=== PATIENT | female | born 1990 | race African-American/Black ===

== ENCOUNTER 2018-11-16 23:23 | Emergency (ER) | payer MEDICAID, OTHER ==
[~2018-11-16] VITALS: Ht 170.2 cm; Wt 87.0 kg
[2018-11-16] MEDS ORDERED: IPRATROPIUM BROMIDE (0.02%) 0.5MG/2.5ML NEB HHN STA (23:47)
[2018-11-16] MEDS ORDERED: ALBUTEROL (0.083%) 2.5MG/3ML NEB HHN STA (23:47)
[2018-11-16] MEDS ORDERED: METHYLPREDNISOLONE SOD SUCC 125 MG/2 ML VIAL IV STA (23:47)
[2018-11-17] MEDS ORDERED: MAGNESIUM 2 G PREMIX 50 ML IV ONE
[2018-11-17] MEDS ORDERED: PREDNISONE 20MG TABLET PO ONE (00:30)
[2018-11-17] MEDS ORDERED: LORAZEPAM 1MG TABLET PO ONE (00:45)
[2018-11-17 01:19] LABS: HCG SCREEN NEGATIVE
[2018-11-17 01:30] VITALS: BP 114/74
== END 2018-11-17 03:17 | disposition home or self-care (01) ==
LOC: ER 23:36
DX: J45.901 Unspecified asthma with (acute) exacerbation (principal)
CPT/HCPCS: 84703; 94640; 96365; 99283; J2930; J3475; J7512; J7611; Z7610

== ENCOUNTER 2018-12-02 09:01 | Emergency (ER) | payer MEDICAID ==
[~2018-12-02] VITALS: Ht 157.5 cm; Wt 84.0 kg
[2018-12-02] MEDS ORDERED: ACETAMINOPHEN 325MG TABLET PO ONE (10:00)
[2018-12-02 10:39] LABS: CLARITY URINE CLEAR (CLEAR); COLOR URINE YELLOW (YELLOW); KETONES URINE NEGATIVE (NEGATIVE); LEUKOCYTE ESTERASE URINE TRACE (NEGATIVE); NITRITE URINE NEGATIVE (NEGATIVE); OCCULT BLOOD URINE NEGATIVE (NEGATIVE); PH URINE >=9.0 (4.5-8.0); PROTEIN URINE NEGATIVE (NEGATIVE)
[2018-12-02 11:08] LABS: BASOPHILS % 0.6 % (0.0-2.0); EOSINOPHILS % 2.4 % (0.0-5.0); HEMATOCRIT. 33.6 % (36.0-48.0); HEMOGLOBIN. 10.8 g/dL (12.0-16.0); LYMPHOCYTES % 43.3 % (20.0-50.0); MEAN CORPUSCULAR HEMOGLOBIN 23.6 pg (28.0-32.0); MEAN CORPUSCULAR VOLUME 73.5 fL (81.0-99.0); MEAN PLATELET VOLUME 7.4 fl (7.4-10.4); MONOCYTES % 5.1 % (2.0-8.0); NEUTROPHILS % 48.6 % (40.0-76.0); PLATELET 318 x1000/uL (130-400); RED BLOOD CELL COUNT 4.57 mill/uL (4.2-5.4); RED CELL DISTRIBUTION WIDTH 14.5 % (11.6-14.6)
[2018-12-02 11:16] LABS: CHLORIDE 103 mEq/L (98-107)
[2018-12-02 11:40] LABS: B-HCG QUANTITATIVE 13084 mIU/mL (<3)
[2018-12-02 12:10] VITALS: BP 107/58
== END 2018-12-02 12:10 | disposition home or self-care (01) ==
LOC: ER 09:01
DX: O20.0 Threatened abortion (principal); O26.891 Other specified pregnancy related conditions, first trimester; Z3A.01 Less than 8 weeks gestation of pregnancy; J45.909 Unspecified asthma, uncomplicated; Z88.6 Allergy status to analgesic agent; Z88.8 Allergy status to other drugs, medicaments and biological substances; Z91.013 Allergy to seafood
CPT/HCPCS: 36415; 76801; 81003; 81025; 84702; 86850; 86900; 99284

== ENCOUNTER 2019-02-03 07:15 | Emergency (ER) | payer MEDICAID ==
[~2019-02-03] VITALS: Ht 170.2 cm; Wt 70.0 kg
[2019-02-03] MEDS ORDERED: PREDNISONE 20MG TABLET PO STA (07:29)
[2019-02-03] MEDS ORDERED: IPRATROPIUM BROMIDE (0.02%) 0.5MG/2.5ML NEB HHN STA (07:29)
[2019-02-03] MEDS ORDERED: ALBUTEROL (0.083%) 2.5MG/3ML NEB HHN STA (07:29)
[2019-02-03 10:38] VITALS: BP 105/64
== END 2019-02-03 10:30 | disposition home or self-care (01) ==
LOC: ER 07:15
DX: O26.892 Other specified pregnancy related conditions, second trimester (principal); Z3A.15 15 weeks gestation of pregnancy; J45.901 Unspecified asthma with (acute) exacerbation; Z88.6 Allergy status to analgesic agent; Z88.8 Allergy status to other drugs, medicaments and biological substances; Z91.013 Allergy to seafood
CPT/HCPCS: 99285; J7512; J7611; Z7610

== ENCOUNTER 2019-08-01 04:06 | Inpatient (IN) | payer MEDICAID ==
[~2019-08-01] VITALS: Ht 154.9 cm; Wt 103.4 kg
[2019-08-01] MEDS ORDERED: DEXT 5%/LR + PITOCIN 20UNITS/L 1,000 ML IV SCH (05:38)
[2019-08-01] MEDS ORDERED: LIDOCAINE HCL 1% 20ML VIAL (Pyxis) INJ INFIL SCH (05:45)
[2019-08-01] MEDS ORDERED: PENICILLIN G POTASSIUM 5 MMU in DEXT 5% WATER 100 ML IV NR (06:00)
[2019-08-01] MEDS: LACTATED RINGERS 1,000 ML IV SCH ×3 (06:30→18:41)
[2019-08-01 07:23] LABS: BASOPHILS % 0.4 % (0.0-2.0); EOSINOPHILS % 1.5 % (0.0-5.0); HEMATOCRIT. 27.7 % (36.0-48.0); LYMPHOCYTES % 34.8 % (20.0-50.0); MEAN CORPUSCULAR HEMOGLOBIN 23.4 pg (28.0-32.0); MEAN CORPUSCULAR VOLUME 71.9 fL (81.0-99.0); MEAN PLATELET VOLUME 8.6 fl (7.4-10.4); MONOCYTES % 5.4 % (2.0-8.0); NEUTROPHILS % 57.9 % (40.0-76.0); PLATELET 262 x1000/uL (130-400); RED BLOOD CELL COUNT 3.85 mill/uL (4.2-5.4); RED CELL DISTRIBUTION WIDTH 16.1 % (11.6-14.6)
[2019-08-01 07:26] LABS: CLARITY URINE CLOUDY (CLEAR); COLOR URINE YELLOW (YELLOW); KETONES URINE NEGATIVE (NEGATIVE); LEUKOCYTE ESTERASE URINE NEGATIVE (NEGATIVE); NITRITE URINE NEGATIVE (NEGATIVE); OCCULT BLOOD URINE NEGATIVE (NEGATIVE); PH URINE 6.5 (4.5-8.0); PROTEIN URINE 1+ (NEGATIVE); SPECIFIC GRAVITY URINE 1.009 (1.005-1.030); UROBILINOGEN URINE 0.2 E.U./dL (0.2-1.0)
[2019-08-01 07:33] LABS: INR 0.9; PARTIAL THROMBOPLASTIN TIME 26.6 sec (23.4-31.0); PROTHROMBIN TIME 9.8 sec (9.6-11.0)
[2019-08-01 07:43] LABS: *AMPHETAMINES SCREEN URINE NEGATIVE (NEGATIVE); *BARBITURATES SCREEN URINE NEGATIVE (NEGATIVE); *BENZODIAZEPINES SCREEN URINE NEGATIVE (NEGATIVE); *COCAINE SCREEN URINE NEGATIVE (NEGATIVE)
[2019-08-01 07:44] LABS: CANNABINOID URINE SCREEN NEGATIVE (NEGATIVE); METHADONE URINE SCREEN NEGATIVE (NEGATIVE); OPIATES URINE SCREEN NEGATIVE (NEGATIVE); PHENCYCLIDINE URINE SCREEN NEGATIVE (NEGATIVE)
[2019-08-01 11:51] LABS: HEPATITIS B SURFACE ANTIGEN NEGATIVE
[2019-08-01] MEDS: PENICILLIN G POTASSIUM 2.5 MMU in DEXTROSE 5% WATER 50 ML IV SCH ×3 (15:13→23:04)
[2019-08-01] MEDS: BUTORPHANOL TARTRATE 2 MG/ML VIAL IV PRN ×3 (17:13→23:29)
[2019-08-02] MEDS: AZITHROMYCIN 500 MG in DEXT 5% WATER 250 ML IV SCH ×2 (00:12→11:47)
[2019-08-02] MEDS ORDERED: BUTORPHANOL TARTRATE 2 MG/ML VIAL IV PRN ×2 (02:00→12:00)
[2019-08-02] MEDS: PENICILLIN G POTASSIUM 2.5 MMU in DEXTROSE 5% WATER 50 ML IV SCH ×3 (03:03→11:47)
[2019-08-02] MEDS ORDERED: ROPIVACAINE HCL/PF EPIDURAL 200 ML EPI SCH (04:00)
[2019-08-02] MEDS: LACTATED RINGERS 1,000 ML IV SCH (04:39)
[2019-08-02] MEDS ORDERED: FENTANYL CITRATE/PF 50MCG/ML 2ML VIAL ONE ×3 (10:04→17:04)
[2019-08-02] MEDS ORDERED: CEFAZOLIN SODIUM 1000MG/VIAL ONE (10:12)
[2019-08-02] MEDS ORDERED: OXYTOCIN 10 UNITS/ML 1ML ONE (10:12)
[2019-08-02] MEDS ORDERED: ONDANSETRON HCL 4MG/2ML INJ ONE (10:12)
[2019-08-02] MEDS ORDERED: CITRIC ACID/SODIUM CITRATE SOLN 30ML UDC PO ONE (10:30)
[2019-08-02] MEDS ORDERED: LIDOCAINE HCL 1% 20ML VIAL (Pyxis) INJ INFIL ONE (12:00)
[2019-08-02] MEDS ORDERED: LACTATED RINGERS 1,000 ML IV SCH (12:00)
[2019-08-02] MEDS ORDERED: LIDOCAINE HCL 2%/EPINEPHRINE 1:100,000 20 ML VIAL INFIL ONE (12:54)
[2019-08-02] MEDS ORDERED: ROPIVACAINE HCL/PF EPIDURAL 200 ML EPI ONE (15:04)
[2019-08-02] MEDS ORDERED: PENICILLIN G POTASSIUM 2.5 MMU in DEXTROSE 5% WATER 50 ML IV SCH (16:00)
[2019-08-02] MEDS ORDERED: MIDAZOLAM HCL 2 MG/2 ML VIAL ONE (17:03)
[2019-08-02] MEDS ORDERED: FENTANYL CITRATE/PF 50MCG/ML 2ML VIAL IV PRN (17:04)
[2019-08-02] MEDS ORDERED: CITRIC ACID/SODIUM CITRATE SOLN 15ML UDC PO NR (18:00)
[2019-08-02] MEDS: FENTANYL CITRATE/PF 50MCG/ML 2ML VIAL IV PRN ×3 (18:35→19:49)
[2019-08-02 20:00] VITALS: BP 117/73
[2019-08-02 21:30] VITALS: BP 115/74
[2019-08-02] MEDS ORDERED: DEXT 5%/LR + PITOCIN 20UNITS/L 1,000 ML IV SCH (21:58)
[2019-08-02] MEDS ORDERED: DEXT 5%/LACTATED RINGERS 1,000 ML IV SCH (21:58)
[2019-08-02] MEDS ORDERED: LANOLIN OINT 7GM TUBE TOP PRN (22:00)
[2019-08-02] MEDS ORDERED: ONDANSETRON HCL 4MG/2ML INJ IV PRN (22:00)
[2019-08-02] MEDS ORDERED: IBUPROFEN 400MG TABLET PO PRN (22:00)
[2019-08-02] MEDS ORDERED: HEMORRHOIDAL SUPP PR PRN (22:00)
[2019-08-02] MEDS ORDERED: BISACODYL 10MG SUPP PR PRN (22:00)
[2019-08-02] MEDS ORDERED: RHO(D) IMMUNE GLOBULIN 300 MCG/SYR IM PRN (22:00)
[2019-08-02] MEDS ORDERED: DIPHENHYDRAMINE 25MG CAPSULE PO PRN (22:00)
[2019-08-02] MEDS: KETOROLAC 30MG/ML VIAL IV PRN (23:34)
[2019-08-02 23:50] VITALS: BP 119/71
[2019-08-03] MEDS ORDERED: AZITHROMYCIN 500 MG in DEXT 5% WATER 250 ML IV SCH ×4
[2019-08-03] MEDS: KETOROLAC 30MG/ML VIAL IV PRN (04:56)
[2019-08-03 05:30] VITALS: BP 114/82
[2019-08-03 06:17] LABS: BASOPHILS % 0.3 % (0.0-2.0); EOSINOPHILS % 0.7 % (0.0-5.0); HEMATOCRIT. 25.4 % (36.0-48.0); LYMPHOCYTES % 16.9 % (20.0-50.0); MEAN CORPUSCULAR HEMOGLOBIN 22.7 pg (28.0-32.0); MEAN PLATELET VOLUME 9.1 fl (7.4-10.4); MONOCYTES % 4.7 % (2.0-8.0); NEUTROPHILS % 77.4 % (40.0-76.0); PLATELET 220 x1000/uL (130-400); RED BLOOD CELL COUNT 3.53 mill/uL (4.2-5.4); RED CELL DISTRIBUTION WIDTH 16.3 % (11.6-14.6)
[2019-08-03] MEDS: SIMETHICONE 80MG TABLET CHEW PO SCH ×3 (09:04→20:59)
[2019-08-03] MEDS: PRENATAL VIT/FE FUMARATE/FA TABLET PO SCH (09:05)
[2019-08-03] MEDS: IBUPROFEN 800MG TABLET PO PRN ×2 (09:05→16:04)
[2019-08-03] MEDS: FERROUS SULFATE 325MG TABLET PO SCH ×2 (09:05→16:04)
[2019-08-03 18:13] VITALS: BP 107/53
[2019-08-03] MEDS: HYDROCODONE/ACETAMINOPHEN 5/325MG TABLET PO PRN (19:07)
[2019-08-03] MEDS: MAGNESIUM/ALUMINUM HYDROXIDE/SIMETHICONE 30ML UDC PO SCH (20:58)
[2019-08-03] MEDS: DOCUSATE SODIUM 100MG CAPSULE PO SCH (20:59)
[2019-08-03 21:51] VITALS: BP 106/63
[2019-08-04] MEDS: HYDROCODONE/ACETAMINOPHEN 5/325MG TABLET PO PRN ×4 (05:06→21:02)
[2019-08-04] MEDS: SIMETHICONE 80MG TABLET CHEW PO SCH ×4 (08:00→21:10)
[2019-08-04] MEDS: MAGNESIUM/ALUMINUM HYDROXIDE/SIMETHICONE 30ML UDC PO SCH ×3 (09:11→21:10)
[2019-08-04] MEDS: PRENATAL VIT/FE FUMARATE/FA TABLET PO SCH (09:12)
[2019-08-04] MEDS: FERROUS SULFATE 325MG TABLET PO SCH (09:12)
[2019-08-04 10:00] VITALS: BP 124/79
[2019-08-04 19:15] VITALS: BP 123/76
[2019-08-04] MEDS ORDERED: BISACODYL 5MG TABLET PO PRN (20:45)
[2019-08-04] MEDS: DOCUSATE SODIUM 100MG CAPSULE PO SCH (21:00)
[2019-08-05] VITALS: BP 125/72
[2019-08-05 03:10] VITALS: BP 126/75
[2019-08-05] MEDS: HYDROCODONE/ACETAMINOPHEN 5/325MG TABLET PO PRN ×2 (03:10→10:05)
[2019-08-05] MEDS: FERROUS SULFATE 325MG TABLET PO SCH (07:30)
[2019-08-05] MEDS: MAGNESIUM/ALUMINUM HYDROXIDE/SIMETHICONE 30ML UDC PO SCH (07:30)
[2019-08-05] MEDS ORDERED: IBUP-2030 MT (07:51)
[2019-08-05 08:00] VITALS: BP 101/50
[2019-08-05] MEDS: SIMETHICONE 80MG TABLET CHEW PO SCH (08:00)
[2019-08-05] MEDS: PRENATAL VIT/FE FUMARATE/FA TABLET PO SCH (09:00)
== END 2019-08-05 12:33 | disposition home or self-care (01) | DRG 540 ==
LOC: OBSVTOIN 04:06 → 8 EST LDRP 04:06 → 8EST 08-02 19:13
PROVIDERS: ADMIT Obstetrics & Gynecology; ATTEND Obstetrics & Gynecology
PROC: 10D00Z1 Extraction of Products of Conception, Low, Open Approach (ICD-10-PCS; principal; 2019-08-02)
DX: O48.0 Post-term pregnancy (principal); D62 Acute posthemorrhagic anemia; O34.211 Maternal care for low transverse scar from previous cesarean delivery; O32.4XX0 Maternal care for high head at term, not applicable or unspecified; Z37.0 Single live birth; O66.41 Failed attempted vaginal birth after previous cesarean delivery; O76 Abnormality in fetal heart rate and rhythm complicating labor and delivery; O99.214 Obesity complicating childbirth; E66.01 Morbid (severe) obesity due to excess calories; O99.02 Anemia complicating childbirth; O99.824 Streptococcus B carrier state complicating childbirth; Z3A.40 40 weeks gestation of pregnancy; Z88.5 Allergy status to narcotic agent; Z91.041 Radiographic dye allergy status
CPT/HCPCS: 36415; 76805; 80305; 81003; 85025; 86592; 86703; 86762; 86850; 86900; 87340; 88307; J0456; J0595; J0690; J1885; J2250; J2405; J2540; J2590; J2795; J3010; J3490; J7060; J7120; J7121